=== PATIENT | female | born 1940 | race Caucasian/White ===

== ENCOUNTER 2022-07-04 10:42 | Emergency (ER) | payer MEDICARE, OTHER, SELFPAY ==
[2022-07-04 10:54] VITALS: BP 167/89; PULSE 86; RESP 18; TEMP 36.4; BMI 17.4
--- NOTE | 2022-07-04 11:06 | CRLHL7_ITS ---
For Patients: As a result of the Century Cures Act, medical imaging exams and procedure reports are released immediately into your electronic medical record. You may view this report before your referring provider. If you have questions, please contact your health care provider. DATE: 07/04/2022. CLINICAL HISTORY: Fall. TECHNIQUE: Standard helical CT image acquisition of the brain was performed. COMPARISON: None available. FINDINGS: There is no acute intracranial hemorrhage, extra-axial collection, mass effect, or midline shift. Munoz-white matter differentiation is preserved. Age-appropriate [id number] generalized parenchymal volume loss. Patchy hypoattenuation in the white matter of both hemispheres likely reflects sequela of chronic small vessel ischemia. No displaced calvarial fracture. Thinning of the ocular lenses. The paranasal sinuses are unremarkable. The mastoid air cells are unremarkable. Soft tissue contusion in the right premaxillary fat pad and right periorbital region. IMPRESSION: 1. No CT evidence of acute intracranial abnormality or closed head injury. 2. Soft tissue contusion involving the right pre maxillary fat pad and right periorbital region. Please note that all CT scans at this facility use dose modulation, iterative reconstruction, and/or weight-based dosing when appropriate to reduce radiation dose to as low as reasonably achievable. Dictated by Nayan Mcghee MD @ 07/04/2022 11:39:23 AM (Electronically Signed)
--- NOTE | 2022-07-04 11:06 | CRLHL7_ITS ---
For Patients: As a result of the Cures Act, medical imaging exams and procedure reports are released immediately into your electronic medical record. You may view this report before your referring provider. If you have questions, please contact your health care provider. DATE: 07/04/2022. CLINICAL HISTORY: Fall. TECHNIQUE: Standard CT scanning of the facial bones was performed. COMPARISON: None available. FINDINGS: No acute displaced fracture of the facial bones. The bony orbits are intact. The pterygoid plates are intact. The mandible is intact. The peterson of the maxillary sinus are intact. Moderate to severe rightward deviation of the nasal septum. The osteoarthrosis of the temporomandibular joints. Moderate sized soft tissue contusion involving the right pre maxillary fat pad and extending into the right periorbital region. IMPRESSION: 1. No acute displaced fracture of the facial bones. 2. Moderate sized soft tissue contusion involving the right pre maxillary fat pad and extending into the right periorbital region. Please note that all CT scans at this facility use dose modulation, iterative reconstruction, and/or weight-based dosing when appropriate to reduce radiation dose to as low as reasonably achievable. Dictated by Nayan Mcghee MD @ 07/04/2022 11:43:55 AM (Electronically Signed)
--- NOTE | 2022-07-04 11:06 | CRLHL7_ITS ---
For Patients: As a result of the Century Cures Act, medical imaging exams and procedure reports are released immediately into your electronic medical record. You may view this report before your referring provider. If you have questions, please contact your health care provider. INDICATION: Fall. TECHNIQUE: Three views right knee. IMPRESSION: No acute fracture. Anatomic alignment. Chondrocalcinosis of the menisci. Minor grade 1 narrowing medial compartment. No joint effusion. Minor insertional spur superior patella quadriceps insertion. Atherosclerotic vascular calcifications. Dictated by Edinson Tate MD @ 07/04/2022 12:01:02 PM (Electronically Signed)
--- NOTE | 2022-07-04 11:06 | CRLHL7_ITS ---
For Patients: As a result of the Cures Act, medical imaging exams and procedure reports are released immediately into your electronic medical record. You may view this report before your referring provider. If you have questions, please contact your health care provider. DATE: 07/04/2022. CLINICAL HISTORY: Trauma. TECHNIQUE: Helical CT acquisition of the cervical spine was performed. Coronal and sagittal reformations were performed and interpreted. COMPARISON: None available. FINDINGS: There is no evidence of acute displaced fracture or traumatic malalignment of the cervical spine. The facets are well aligned. Vertebral body heights are maintained without evidence of significant compression deformity. No evidence of significant trauma at the craniocervical junction. Cervical spondylosis with stepwise grade 1 degenerative anterolisthesis of C2 on C3 and C3 on C4. No evidence of severe spinal canal stenosis. The visualized prevertebral soft tissues are unremarkable. Biapical pleural-parenchymal scarring. IMPRESSION: No acute displaced fracture or traumatic malalignment of the cervical spine. Please note that all CT scans at this facility use dose modulation, iterative reconstruction, and/or weight-based dosing when appropriate to reduce radiation dose to as low as reasonably achievable. Dictated by Nayan Mcghee MD @ 07/04/2022 11:46:16 AM (Electronically Signed)
--- NOTE | 2022-07-04 11:07 | ED.FALL ---
HPI - Fall General Chief Complaint: Fall/Minor Trauma Stated Complaint: Fell, hit head Time Seen by Provider: 07/04/22 11:01 History of Present Illness HPI Narrative: Pt is an 82 year old woman who stumbled over her shoe this morning. Pt fell striking the right side of her face. No LOC. Pt also struck her right knee and has a small skin tear of the the posterior right hand. Pt was able to get herself up and went about her day. Pt was convinced by a friend to come to the ED. Pain is minimal. Pt has no neurological complaints. She is otherwise feeling well. Pt has no previous history of falls. Pt is not on blood thinners but does take a baby aspirin daily. Pt feeling fine now with no complaints. Most of the swelling and bruising is around the right eye. Related Data Home Medications Medication Instructions Recorded Confirmed gabapentin 300 mg capsule 300 mg PO QPM 07/04/22 07/04/22 isosorbide mononitrate 30 mg 30 mg PO DAILY 07/04/22 07/04/22 tablet,extended release 24 hr latanoprost 0.005 % eye drops 1 drp ophthalmic (eye) QPM 07/04/22 07/04/22 metoprolol succinate 25 mg 25 mg PO BID 07/04/22 07/04/22 tablet,extended release 24 hr rosuvastatin 5 mg tablet 5 mg PO QPM 07/04/22 07/04/22 Allergies Allergy/AdvReac Type Severity Reaction Status Date / Time amlodipine Allergy Verified 07/04/22 10:54 Sulfa (Sulfonamide Allergy Verified 07/04/22 10:54 Antibiotics) Review of Systems Status of ROS: Reports: 10 or more systems reviewed and unremarkable except as noted in History and below [facility] Medical History (Updated 07/04/22 @ 11:55 by Alex Sanchze MD) Hyperlipidemia ?E78.5 - Hyperlipidemia, unspecified (ICD-10) Hypertension ?I10 - Essential (primary) hypertension (ICD-10) Exam Narrative: Exam Narrative: EXAM GENERAL: Patient appears comfortable and well. EYES: No scleral icterus. EOM intact. Pt has bruising and swelling around the right eye and zygomatic arch. ENT: Tympanic membranes and oropharynx normal. THYROID: no thyroid nodules or thyromegaly. LYMPH: No supraclavicular or cervical lymphadenopathy. SKIN: Minor skin tears on the anterior right knee and posterior right hand. EXT: No dependent lower extremity pedal edema. HEART: Regular rate and rhythm with no murmurs, rubs, or gallops. LUNGS: Clear to auscultation bilaterally with no crackles or wheezes. ABD: Soft, non tender, non distended. PSYCH: Good eye contact, speech is not pressured. Const: Vital Signs, click to edit/add: Vital Signs - 24 hr 07/04/22 10:54 Temperature 97.5 F L Pulse Rate [Right Pulse Oximeter] 86 Respiratory Rate 18 Blood Pressure [Ri ght Upper Arm] 167/89 H Course Course Hospital Course: Pt seen and examined. CT head neck and facial bones as well as x ray of the right knee ordered. Vital Signs Vital signs: Initial Vital Signs Temperature 97.5 F L 07/04/22 10:54 Temperature Source Temporal Artery Scan 07/04/22 10:54 Pulse Rate 86 07/04/22 10:54 Respiratory Rate 18 07/04/22 10:54 Blood Pressure 167/89 H 07/04/22 10:54 Blood Pressure Mean 115 H 07/04/22 10:54 Blood Pressure Position Sitting 07/04/22 10:54 Vital Signs Temperature 97.5 F L 07/04/22 10:54 Pulse Rate 86 07/04/22 10:54 Respiratory Rate 18 07/04/22 10:54 Blood Pressure 167/89 H 07/04/22 10:54 Temperature 97.5 F L 07/04/22 10:54 Pulse Rate 86 07/04/22 10:54 Respiratory Rate 18 07/04/22 10:54 Blood Pressure 167/89 H 07/04/22 10:54 MDM - Fall MDM Narrative Medical decision making narrative: Patient is a an 82-year-old woman who stumbled and fell at home. She presents ambulatory to the emergency room where a CT of the facial bones head neck are all negative for fracture. I also x-rayed her right knee which is also negative for fracture. Her abrasions were treated. She appears to be hemodynamically stable I do not believe requires any lab work. She is given instructions for contusions and skin tears and will follow-up with her primary physician as needed. Of note she is up-to-date on her tetanus shot. She has no signs of concussion. Differential Diagnosis Differential diagnosis: Likely syncope, fracture of wrist, concussion with loss of consciousness and concussion without loss of consciousness Discharge Plan Discharge Clinical Impression: Contusion Patient Disposition: Home, Self-Care Condition: Stable Instructions: Facial Contusion (ED) Additional Instructions: Dressing changes on wounds. Ice as needed Tylenol and Motrin as needed Follow-up with your doctor this week. Activity Level: No Restrictions Discharge Diet: Regular Prescriptions: No Action latanoprost 0.005 % drops 1 drp ophthalmic (eye) QPM isosorbide mononitrate 30 mg tablet extended release 24 hr 30 mg PO DAILY gabapentin 300 mg capsule 300 mg PO QPM metoprolol succinate 25 mg tablet extended release 24 hr 25 mg PO BID rosuvastatin 5 mg tablet 5 mg PO QPM Follow Up/Referrals: Keisha Resendiz MD [Primary Care Provider] - Stand Alone Forms: Mail[employer] Info Instructions
== END 2022-07-04 12:12 | disposition home or self-care (01) ==
PROVIDERS: Emergency Provider Internal Medicine; PCP Family Medicine
DX: S80.01XA Contusion of right knee, initial encounter (principal); S60.221A Contusion of right hand, initial encounter; W01.0XXA Fall on same level from slipping, tripping and stumbling without subsequent striking against object, initial encounter
CPT/HCPCS: 70450; 70486; 72125; 73562; 99283; 99285